=== PATIENT | female | born 1955 | race Caucasian/White ===

== ENCOUNTER 2021-08-22 08:21 | Day surgery (SDC) | payer OTHER ==
[2021-08-21 15:12] LABS: Basophils % 0.6 % (0-1.3); Hematocrit 42.8 % (36.0-45.0); Lymphocytes % 27.7 % (15.3-44.8); MPV 9.5 fL (7.6-11.3); RBC Red Blood Cell Count 4.98 M/uL (3.86-4.86)
--- NOTE | 2021-08-21 15:22 | RAD REPORT ---
EXAM DESCRIPTION: RAD - Chest Pa And Lat (2 Views) - 08/21/2021 3:16 pm CLINICAL HISTORY: pre op Chest pain. COMPARISON: No comparisons FINDINGS: The lungs are clear. The heart is upper limit of normal in size. No displaced fractures.
[2021-08-21 15:27] LABS: Potassium 3.8 mmol/L (3.5-5.1)
[~2021-08-22 08:21] MED LIST: CEFOXITIN 1 GM in NA CHLORIDE 0.9% 50 ML IVPB SCH; CEFOXITIN/NS 1gm 1 GM/50 ML BAG IVPB SCH
[2021-08-22] MEDS ORDERED: Ringers Lactate 1,000 ML IV ONE (08:51)
[2021-08-22] MEDS ORDERED: CEFOXITIN/NS 1gm 1 GM/50 ML BAG ONE (08:52)
[2021-08-22] MEDS ORDERED: SCOPOLAMINE HYDROBROMIDE PATCH TD ONE (09:38)
[2021-08-22] MEDS ORDERED: ACETAMINOPHEN 500 MG TAB ONE (09:38)
[2021-08-22] MEDS ORDERED: CELECOXIB 100 MG CAPSULE ONE (09:38)
[2021-08-22] MEDS ORDERED: FENTANYL CITR 100 MCG/2 ML ONE ×2 (10:43→11:12)
[2021-08-22] MEDS ORDERED: propofoL 200 MG/20 ML VIAL IV ONE (10:43)
[2021-08-22] MEDS ORDERED: ROCURONIUM 50 MG/5 ML VIAL IV ONE (10:44)
[2021-08-22] MEDS ORDERED: LIDOCAINE 1% MPF 5 ML VIAL ONE (10:44)
[2021-08-22] MEDS ORDERED: NS 0.9% VIAL 10 ML ONE (10:55)
[2021-08-22] MEDS ORDERED: dexAMETHasone 10 MG/ML VIAL ONE (11:23)
[2021-08-22] MEDS ORDERED: KETOROLAC 30 MG/ML INJ ONE (11:23)
[2021-08-22] MEDS ORDERED: ESMOLOL HCL 10 ML IV ONE (11:29)
[2021-08-22] MEDS ORDERED: ONDANSETRON 4 MG/2 ML VIAL ONE ×2 (11:29→12:34)
[2021-08-22] MEDS ORDERED: GLYCOPYRROLATE 0.2 MG/ML SYR ONE (11:52)
[2021-08-22] MEDS: FENTANYL CITR 100 MCG/2 ML ONE ×3 (11:52→12:10)
[2021-08-22] MEDS ORDERED: NEOSTIGMINE 1 MG/ML -5 ML ONE (11:53)
[2021-08-22] MEDS: HYDROMORPHONE HCL 1 MG/ML INJ ONE ×4 (12:05→12:25)
--- NOTE | 2021-08-22 12:56 | OP ---
Date of Procedure: 08/22/2021 Surgeon: Thomas Bernal MD Plaster Helper: Jose Manuel Plummer, it assistant certified. Preoperative Diagnosis: Chronic cholecystitis and biliary dyskinesia. Postoperative Diagnosis: Chronic cholecystitis and biliary dyskinesia. Procedure: Laparoscopic cholecystectomy. Estimated Blood Loss: Minimal. Specimen: Gallbladder. 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 Anesthesia: General. Complications: None. Disposition: The patient tolerated the procedure in stable condition and taken to Recovery in good g eneral condition. Procedure In Detail: The patient was brought to the OR and placed in supine position. General anest hesia begun. The patient was prepped and draped in the usual sterile fashion. Marcaine 0.5% was inf iltrated locally. A 15-blade was used to make a 1 cm supraumbilical midline incision. Subcutaneous tissue was divided. Fascia was identified and divided. A #1 Vicryl stay suture was placed and then peritoneal cavity entered with sharp and blunt dissection. A 12 mm trocar was placed into the perito kristen cavity under direct vision. Pneumoperitoneum was established. Three 5 mm trocars were placed, 1 in the epigastrium just to the right of midline and 2 in the right subcostal region. 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 They were lysed with sharp dissection. The gallbladder appeared to be chronically inf lamed. Fundus retracted superiorly. Infundibulum was identified and retracted inferolaterally. Cys tic duct and cystic artery were clearly identified with blunt dissection. Clips were placed. Both s tructures were divided. Cautery was used to remove the gallbladder from the liver bed. Bleeding on the liver bed was controlled with cautery. Gallbladder was retrieved through the umbilicus via an En doCatch bag. The right upper quadrant was irrigated. Effluent was clear. No evidence of bleeding o r bile leakage appreciated. Subsequently, all trocars were removed under direct vision. Stay suture s were tied to each other to approximate the fascial defect. Subcutaneous wounds were irrigated. Bl eeding was controlled with cautery. A 3-0 chromic was used to approximate the subcutaneous tissue an d roel were used to close the skin. Sterile dressing applied. The patient was awakened and recov catherine Room in good general condition. Discharge Note: The patient will go to Day Surgery and home when stable. Disposition: Home. Condition: Stable. Discharge Instructions: Resume home medications and diet. Activity as tolerated. No heavy lifting. Remove outer dressing in 2 days. Shower. Keep wound clean and dry. [place]. Call for appointment. Tylenol No.3 one tablet p.o. q.4 p.r.n. pain. /MODL Voice ID: [id number] Report ID: [id number]
[2021-08-22] MEDS ORDERED: HYDROMORPHONE HCL 1 MG/ML INJ ONE (13:03)
[2021-08-22] MEDS ORDERED: HYDROCODONE/APAP 7.5/325 MG TAB ONE ×2 (13:53→15:58)
[2021-08-22 14:52] VITALS: BP 181/97; TEMP 98; O2SAT 98
[2021-08-22] MEDS ORDERED: HYDROCODONE/APAP 7.5/325 MG TAB PO ONE (15:35)
== END 2021-08-22 16:16 | disposition home or self-care (01) ==
LOC: OR 08:21
PROVIDERS: ATTEND Surgery
PROC: 0FT44ZZ Resection of Gallbladder, Percutaneous Endoscopic Approach (ICD-10-PCS; principal; 2021-08-22 10:15)
DX: K81.1 Chronic cholecystitis (principal); K82.8 Other specified diseases of gallbladder; Z20.822 Contact with and (suspected) exposure to COVID-19
CPT/HCPCS: 93005; 85025; 80048; 36415; 88304; 71046; 47562; U0003; J2704; J3010 ×3; J1100; J1170 ×3; J2710; J7120; J0694; J2405 ×2